=== PATIENT | female | born 1940 | race Caucasian/White ===

== ENCOUNTER → 2017-07-19 | Outpatient (CLI) | payer MEDICARE, OTHER ==
[~2017-07-19] MED LIST: ABAT250V; ACET325 PO; ALBU3IS INH; ALBU3IS NEB; AZIT500 PO; BENZ100A PO; Bacid1 EACH PO; CEPH250A PO; CODGUAEL PO; DIGO.125 PO; FURO40 PO; K-Dur 20 meq T20 MEQ PO; LORA.5 PO; MANNOSE50 GM PO; METO25; METO25ER PO; METR500 PO; OMEP20ER PO; POTCHL20ER PO; POTPHO PO; ROBITUSSIN100 MG/5 M PO; SULTRIDS PO; WARF5 PO
[2017-07-19 16:11] LABS: Source, Urine Clean Catch
[2017-07-19 18:15] LABS: Appearance, Urine Hazy (Clear); Bilirubin, Urine Neg (Neg); Blood, Urine 1+ (Neg); Color, Urine Yellow (P-Yellow); Glucose Qualitative, Urine Neg (Neg); Ketones, Urine Neg (Neg); Leukocyte Esterase, Urine 2+ (Neg); Nitrite, Urine Pos (Neg); Protein, Urine Neg (Neg); Specific Gravity, Urine 1.025 (1.003-1.022); Urobilinogen, Urine NORM (Normal)
[2017-07-19 18:41] LABS: Bacteria Many /hpf; Squamous Epithelial Cells Few /hpf (Few)
== END | disposition home or self-care (01) ==
LOC: OLS 16:10
PROVIDERS: Internal Medicine
DX: N39.0 Urinary tract infection, site not specified (principal)
CPT/HCPCS: 81001; 87077; 87086; 87186

== ENCOUNTER → 2019-09-07 | Outpatient (CLI) | payer MEDICARE, OTHER ==
[2019-09-07 13:49] LABS: Source, Urine Clean Catch
[2019-09-07 15:48] LABS: Blood, Urine 4+ (Neg); Glucose Qualitative, Urine Neg (Neg); Ketones, Urine 1+ (Neg); Leukocyte Esterase, Urine 3+ (Neg); Nitrite, Urine Pos (Neg); Protein, Urine 2+ (Neg); Specific Gravity, Urine 1.025 (1.003-1.022); Urobilinogen, Urine 1+ (Normal)
[2019-09-07 15:54] LABS: Appearance, Urine Cloudy (Clear); Bilirubin, Urine 1+ (Neg); Color, Urine Yellow (P-Yellow)
[2019-09-07 15:55] LABS: White Blood Cells, Urine TNTC /hpf (0-5)
[2019-09-07 16:02] LABS: Bacteria Many /hpf; Squamous Epithelial Cells Few /hpf (Few)
== END | disposition home or self-care (01) ==
LOC: LAB SHORT 13:48 → OLS 13:48
PROVIDERS: Internal Medicine
DX: N39.0 Urinary tract infection, site not specified (principal)
CPT/HCPCS: 81001; 87077; 87086; 87186

== ENCOUNTER → 2019-09-14 | Outpatient (CLI) | payer MEDICARE, OTHER ==
[2019-09-14 15:52] LABS: Source, Urine Clean Catch
[2019-09-14 17:27] LABS: Bilirubin, Urine Neg (Neg); Blood, Urine Neg (Neg); Glucose Qualitative, Urine Neg (Neg); Ketones, Urine Neg (Neg); Leukocyte Esterase, Urine Neg (Neg); Nitrite, Urine Neg (Neg); Protein, Urine Neg (Neg); Specific Gravity, Urine 1.025 (1.003-1.022); Urobilinogen, Urine NORM (Normal)
[2019-09-14 17:37] LABS: Appearance, Urine Clear (Clear); Color, Urine Yellow (P-Yellow)
== END | disposition home or self-care (01) ==
LOC: OLS 15:51 → LAB SHORT 15:51 → LAB FUT 09-07 17:45
PROVIDERS: Internal Medicine
DX: N39.0 Urinary tract infection, site not specified (principal)
CPT/HCPCS: 81003

== ENCOUNTER → 2021-05-11 | Outpatient (CLI) | payer MEDICARE, OTHER | LOC: LAB SHORT 15:53 → LAB 15:53 | DX: D48.5 Neoplasm of uncertain behavior of skin (principal); Z91.048 Other nonmedicinal substance allergy status; Z88.1 Allergy status to other antibiotic agents | CPT/HCPCS: 88305 ==

== ENCOUNTER 2023-04-21 16:13 | Emergency (ER) | payer MEDICARE, OTHER ==
[~2023-04-21] VITALS: Ht 157.5 cm; Wt 50.4 kg
[2023-04-21 17:05] LABS: BASOPHILS ABSOLUTE AUTO 0.04 K/mm3 (0.00-0.23); BASOPHILS PERCENT AUTO 1 % (0-2); EOSINOPHILS ABSOLUTE AUTO 0.09 K/mm3 (0.00-0.68); EOSINOPHILS PERCENT AUTO 1 % (0-6); Hematocrit 34.2 % (33.0-51.0); Hemoglobin 11.5 g/dL (11.5-16.0); IMMATURE GRAN ABSOLUTE AUTO 0.03 K/mm3 (0.00-0.10); IMMATURE GRAN PERCENT AUTO 0 % (0-1); LYMPHOCYTES ABSOLUTE AUTO 1.87 K/mm3 (0.84-5.20); LYMPHOCYTES PERCENT AUTO 26 % (21-46); MONOCYTES ABSOLUTE AUTO 0.56 K/mm3 (0.16-1.47); MONOCYTES PERCENT AUTO 8 % (4-13); Mean Corpuscular HGB Conc 33.6 g/dL (31.5-36.5); Mean Corpuscular Volume 98 fL (80-100); Mean Platelet Volume 10.5 fL (9.1-12.4); NEUTROPHILS ABSOLUTE AUTO 4.62 K/mm3 (1.96-9.15); NEUTROPHILS PERCENT AUTO 64 % (41-73); Platelet Count 219 K/mm3 (150-400); RDW Coefficient Variation 14.6 % (11.7-14.2); RDW Standard Deviation 53.1 fL (35.1-46.3); Red Blood Cell Count 3.49 M/mm3 (3.80-5.20); White Blood Cell Count 7.21 K/mm3 (4.00-11.30)
[2023-04-21 17:28] LABS: Albumin, Blood 3.7 g/dL (3.4-5.0); Albumin/Globulin Ratio 1.6 (0.8-1.8); Bilirubin, Total 0.4 mg/dL (0.1-1.0); Bun/Creatinine Ratio 21.9 (12.0-20.0); Calcium, Blood 8.6 mg/dL (8.5-10.1); Creatinine, Blood 1.37 mg/dL (0.40-1.00); Globulin, Blood 2.3 g/dL (2.2-4.0); Potassium, Blood 3.6 mmol/L (3.5-5.5)
[2023-04-21 18:00] VITALS: BP 146/82
== END 2023-04-21 18:10 | disposition home or self-care (01) ==
LOC: ER 16:13
PROVIDERS: Physician Assistant
DX: T44.7X1A Poisoning by beta-adrenoreceptor antagonists, accidental (unintentional), initial encounter (principal); Z88.8 Allergy status to other drugs, medicaments and biological substances; Z79.899 Other long term (current) drug therapy; Z79.01 Long term (current) use of anticoagulants
CPT/HCPCS: 80053; 85025; 93005; 93010; 99284-25

== ENCOUNTER 2023-07-18 09:08 | Inpatient (IN) | payer MEDICARE, OTHER ==
[2023-07-18] VITALS (31 sets, daily range): BP systolic 86–129; BP diastolic 47–108
[~2023-07-18] VITALS: Ht 154.9 cm; Wt 44.3 kg
[2023-07-18 10:03] LABS: BASOPHILS ABSOLUTE AUTO 0.02 K/mm3 (0.00-0.23); BASOPHILS PERCENT AUTO 0 % (0-2); EOSINOPHILS ABSOLUTE AUTO 0.09 K/mm3 (0.00-0.68); EOSINOPHILS PERCENT AUTO 1 % (0-6); Hemoglobin 11.2 g/dL (11.5-16.0); IMMATURE GRAN ABSOLUTE AUTO 0.05 K/mm3 (0.00-0.10); IMMATURE GRAN PERCENT AUTO 1 % (0-1); LYMPHOCYTES ABSOLUTE AUTO 1.34 K/mm3 (0.84-5.20); LYMPHOCYTES PERCENT AUTO 19 % (21-46); MONOCYTES ABSOLUTE AUTO 0.61 K/mm3 (0.16-1.47); MONOCYTES PERCENT AUTO 8 % (4-13); Mean Corpuscular HGB 33.4 pg (26.0-34.0); Mean Corpuscular HGB Conc 32.9 g/dL (31.5-36.5); Mean Corpuscular Volume 102 fL (80-100); Mean Platelet Volume 10.2 fL (9.1-12.4); NEUTROPHILS ABSOLUTE AUTO 5.15 K/mm3 (1.96-9.15); NEUTROPHILS PERCENT AUTO 71 % (41-73); Platelet Count 256 K/mm3 (150-400); RDW Standard Deviation 59.3 fL (35.1-46.3); Red Blood Cell Count 3.35 M/mm3 (3.80-5.20); White Blood Cell Count 7.26 K/mm3 (4.00-11.30)
[2023-07-18 10:06] LABS: Source, Urine Straight Cath
[2023-07-18 10:18] LABS: Appearance, Urine Hazy (Clear); Bilirubin, Urine Neg (Neg); Blood, Urine 1+ (Neg); Color, Urine Yellow (P-Yellow); Glucose Qualitative, Urine Neg (Neg); Ketones, Urine Neg (Neg); Leukocyte Esterase, Urine 1+ (Neg); Nitrite, Urine Neg (Neg); Protein, Urine 1+ (Neg); Specific Gravity, Urine 1.025 (1.003-1.022); Urobilinogen, Urine NORM (Normal)
[2023-07-18] MEDS ORDERED: FURO20 PO (10:19)
[2023-07-18 10:29] LABS: Amorphous Mod (0-Heavy); Bacteria Many /hpf; Squamous Epithelial Cells Few /hpf (Few)
[2023-07-18 10:33] LABS: Albumin, Blood 3.2 g/dL (3.4-5.0); Albumin/Globulin Ratio 1.2 (0.8-1.8); Bilirubin, Direct 0.2 mg/dL (0.0-0.3); Bilirubin, Indirect 0.7 mg/dL (0.1-0.7); Bilirubin, Total 0.9 mg/dL (0.1-1.0); Bun/Creatinine Ratio 26.7 (12.0-20.0); Calcium, Blood 8.9 mg/dL (8.5-10.1); Creatinine, Blood 1.61 mg/dL (0.40-1.00); Globulin, Blood 2.7 g/dL (2.2-4.0); Magnesium, Blood 1.5 mg/dL (1.6-2.4); Phosphorus, Blood 3.5 mg/dL (2.5-4.9); Total Protein, Blood 5.9 g/dL (6.4-8.2)
[2023-07-18 10:49] LABS: Influenza A, PCR NEGATIVE (NEGATIVE); Influenza B, PCR NEGATIVE (NEGATIVE); Resp Syncytial Virus, PCR NEGATIVE (NEGATIVE); SARS-Cov-2 (COVID-19) PCR, MMC NEGATIVE (NEGATIVE)
[2023-07-18 11:06] LABS: Prothrombin Time Results 45.1 Sec (9.7-11.5)
[2023-07-18 11:14] LABS: Base Excess Venous -10.6 mmol/L; Bicarbonate Venous 16.5 mmol/L (24.0-30.0); pH Blood Venous 7.26 (7.34-7.37)
[2023-07-18 11:17] LABS: International Normalized Ratio 4.69
[2023-07-18 14:17] LABS: Hematocrit 30.9 % (33.0-51.0); Hemoglobin 10.1 g/dL (11.5-16.0)
--- NOTE | 2023-07-18 18:40 | NUR ---
ICU ADMISSION / SHIFT SUMMARY: REPORT RECEIVED FROM IRIS Sheffield RN IN ED. PT ARRIVED TO ICU-13 AT APPROX 1430. ON ASSESSMENT, THE PT IS A&O TO ALL, PLEASANT & COOPERATIVE. SHE HAS C/O PAIN TO BLE W/ CARE & CLEANSING OF FEET WOUNDS. NOBLE, AMBULATES W/ CANE AT BASELINE. LS CLEAR, PT ON HOME DOSE 2L NC W/ O2 SATS > 95% ON AVG. DENIES COUGH, STS SOB IMPROVING. MONITOR SHOWS SR W/ HR 80-90s, BP SOFT W/ MAP MAINTAINING > [address] GREENE TO BEDSIDE THIS EVENING & HAS ORDERED LR x1 LITER FOR CONTINUOUS IVFs TO MAINTAIN ADEQUATE MAP > 65. DISCONTINUE IF S/SX WORSENING FLUID OVERLOAD OCCUR. PT TOLERATING PO INTAKE WELL W/ NO NAUSEA, NO BM SINCE ADMIT. PUREWICK IN PLACE W/ PULLUP ATTENDS FOR URGENCY INCONTINENCE. SKIN CONDITION OVERALL FRAGILE, WOUNDS TO ANTERIOR FOOT SURFACE THAT PT STS HAVE WORSENED IN PAST WEEK. THEY APPEAR TO BE SKIN TEARS OR ABRASIONS, TOENAILS ARE OVERGROWN & BEGINNING TO IMPEDE UPON EACH OTHER, BENDING & TOUCHING SURROUNDING SOFT TISSUES. PHOTOS IN CHART. THE PT's BUTTOCKS IS SLIGHTLY PINK/ REDENNED, BLANCHABLE & PT STS CHRONIC. MEDIPORT TO PT's LEFT CHEST WALL REMAINS UNACCESSED PER PT REQUEST. SHE STS THAT SHE HAD IT EVALUATED APPROX [facility] & THAT THE LINE STILL WORKS. HAS NOT RECEIVED CHEMO IN APPROX 9 YEARS. WILL CONTINUE TO MONITOR & REPORT OFF TO ONCOMING RN.
--- NOTE | 2023-07-18 20:14 | NUR ---
/ASSESSMENT/ASSUMED CARE PT RESTING QUIETLY WITH EYES CLOSED, OPENS EYES AND STATES,"PAIN IS GONE RIGHT NOW". PT THAN SAYS,"IT COMES AND GOES. IT IS COMING BACK NOW 04/24. IT IS BURNING". CALL TO DR GUILLERMO REGARDING PAIN AND WOUNDS TO BILAT FEET. AWAITING NEW ORDERS. LUNGS CLEAR ON 2 LITERS O2 VIA NC. RESP EVEN AND NONLABORED. HEART RATE UP TO 90-100'S WITH PAIN AND MOVEMENT. BP STABLE. BILAT LOWER EDEMA. PT REPORTS,"IT IS SO MUCH BETTER NOW". BT+ ABD SOFT AND NONTENDER. DENIES N/V. PT MOVING ALL EXT. ATTENDS CHANGED AND PURWICK REPLACED. LINENS CHANGED. LEFT FOOT WOUND WITH DRSG INTACT. RIGHT FOOT WITH WOUND OPEN TO AIR. ELEVATED BILAT FEET. IV WITH LR AT 150 ML/HR FOR ONE LITER
[2023-07-19] VITALS (45 sets, daily range): BP systolic 83–128; BP diastolic 44–86
[2023-07-19 03:32] LABS: BASOPHILS ABSOLUTE AUTO 0.05 K/mm3 (0.00-0.23); BASOPHILS PERCENT AUTO 1 % (0-2); EOSINOPHILS ABSOLUTE AUTO 0.27 K/mm3 (0.00-0.68); EOSINOPHILS PERCENT AUTO 3 % (0-6); Hematocrit 28.9 % (33.0-51.0); Hemoglobin 9.6 g/dL (11.5-16.0); IMMATURE GRAN ABSOLUTE AUTO 0.04 K/mm3 (0.00-0.10); IMMATURE GRAN PERCENT AUTO 0 % (0-1); LYMPHOCYTES ABSOLUTE AUTO 1.89 K/mm3 (0.84-5.20); LYMPHOCYTES PERCENT AUTO 18 % (21-46); MONOCYTES ABSOLUTE AUTO 1.28 K/mm3 (0.16-1.47); MONOCYTES PERCENT AUTO 12 % (4-13); Mean Corpuscular HGB 33.6 pg (26.0-34.0); Mean Corpuscular HGB Conc 33.2 g/dL (31.5-36.5); Mean Corpuscular Volume 101 fL (80-100); Mean Platelet Volume 10.2 fL (9.1-12.4); NEUTROPHILS ABSOLUTE AUTO 6.94 K/mm3 (1.96-9.15); NEUTROPHILS PERCENT AUTO 66 % (41-73); Platelet Count 227 K/mm3 (150-400); RDW Coefficient Variation 15.9 % (11.7-14.2); RDW Standard Deviation 58.3 fL (35.1-46.3); Red Blood Cell Count 2.86 M/mm3 (3.80-5.20); White Blood Cell Count 10.47 K/mm3 (4.00-11.30)
[2023-07-19 03:56] LABS: Prothrombin Time Results 55.8 Sec (9.7-11.5)
[2023-07-19 03:58] LABS: Albumin, Blood 2.3 g/dL (3.4-5.0); Bilirubin, Total 0.6 mg/dL (0.1-1.0); Bun/Creatinine Ratio 30.5 (12.0-20.0); Calcium, Blood 7.9 mg/dL (8.5-10.1); Creatinine, Blood 1.05 mg/dL (0.40-1.00); Globulin, Blood 2.3 g/dL (2.2-4.0); Total Protein, Blood 4.6 g/dL (6.4-8.2)
[2023-07-19 04:07] LABS: International Normalized Ratio 5.87
--- NOTE | 2023-07-19 04:35 | NUR ---
STARTED NS AT 75 ML/HR TO KEEP MAP GREATER THAN 60
--- NOTE | 2023-07-19 06:00 | NUR ---
SHIFT SUMMARY PT RESTED QUIETLY DURING THE NIGHT ON 2 LITERS O2 VIA NC. MED DURING THE NIGHT WITH TYLENOL FOR BILAT FOOT PAIN WITH GOOD RESULTS. PT STATES,"I THINK THAT TYLENOL REALLY DID HELP LAST NIGHT". BILAT FOOT DRSG CHANGED DURING THE NIGHT. PT TURNED Q2HR. TAKING PO MEDS WITHOUT DIFFICULTY. NS AT 75 ML/HR STARTED FOR ONE LITER TO KEEP MAP GREATER THAN 60. REPORT TO ON COMING NURSE
--- NOTE | 2023-07-19 08:16 | NUR ---
ASSUMED CARE / DR CHERRY / DR AUSTIN: REPORT RECEIVED FROM SOSA Knowles RN. ASSUMED CARE OF THIS PT AT APPROX 0700. ON ASSESSMENT, THE PT IS AWAKE, A&O TO ALL. SHE IS PLEASANT & COOPERATIVE W/ CARE BUT DOES HAVE INCREASED C/O PAIN AFTER DRESSINGS TO BILAT FOOT WOUNDS WERE REMOVED FOR DR CHERRY's EVAL THIS AM. LS DIM IN BASES, FINE CRACKLES NOTED TO RLL. PT ON 2L NC W/ O2 SATS > 92%. MONITOR SHOWS SR W/ HR 80s, BP SOFT W/ SBP 90s, MAP MAINTAINING > 65. PT HAS NO GI COMPLAINTS, TOLERATING PO INTAKE WELL. VOIDING USING PUREWICK, YELLOW URINE NOTED IN CANISTER. SKIN CONDITION OVERALL FRAGILE, INTACT. SWELLING TO BLE HAS DECREASED SINCE END OF SHIFT YESTERDAY. DR CHERRY AT BEDSIDE THIS AM TO EVAL PT. HE STS HE WILL PLACE A WOUND CARE CONSULTATION FOR MANAGEMENT OF BILAT FOOT WOUNDS. HE WILL RETURN THIS AFTERNOON W/ TOOLS FROM HIS OFFICE TO PROVIDE CARE TO OVERGROWN TOENAILS. DR AUSTIN AT BEDSIDE THIS AM TO EVAL PT. DISCUSSED PT's CONTINUED SOFT BPs W/ REQUEST TO INCREASE MIDODRINE DOSING. ALSO UPDATED HIM ON DR CHERRY's POC & INCREASED PAIN TO FEET AFTER WOUND CARE. PROVIDER WILL PLACE PRN LIDOCAINE ORDERS, THE PT STS THAT IT PROVIDED RELIEF FROM THE BURNING/ SCALDED SENSATION OF HER WOUNDS. POSSIBLE STATUS CHANGE AFTER DISCUSSING W/ ATTENDING, DR GREENE. NO OTHER CHANGES AT THIS TIME. WILL CONTINUE TO MONITOR & UPDATE NEEDED.
--- NOTE | 2023-07-19 12:11 | NUR ---
DR CHERRY: PROVIDER HAS RETURNED TO BEDSIDE TO COMPLETE TOENAIL CARE & TRIMMING FOR THIS PT. NOTIFIED HIM THAT CONCRETE POURER HAS EVALUATED THE PT & IS PLACING ORDERS FOR WOUND CARE.
--- NOTE | 2023-07-19 18:43 | NUR ---
SHIFT SUMMARY: NO ACUTE CHANGES SINCE PRIOR UPDATES. THE PT REMAINS A&O, PLEASANT & COOPERATIVE. WORKED WELL W/ PT/OT THIS AFTERNOON & WAS ABLE TO DANGLE AT BEDSIDE MULTIPLE TIMES. LS CLEAR, DIM IN BASES. PT ON 2L NC W/ O2 SATS > 95%. MONITOR SHOWS SR W/ HR 60-80s, BP STABLE. SBP SOFT IN 90s WHILE SLEEPING, MAP MAINTAINS > 65. MIDODRINE PER EMAR. PT TOLERATING PO INTAKE WELL W/ NO GI COMPLAINTS. NO BM THIS SHIFT, BOWEL CARE PER EMAR. NEW PUREWICK & ATTENDS PLACED THIS EVENING AT TIME OF CHG BATH. CLEAR YELLOW URINE NOTED IN CANISTER. SKIN CONDITION OVERALL INTACT, Q2H REPOSITIONING TO MAINTAIN SKIN INTEGRITY. DRESSINGS TO BLE REMAIN CDI, SOCKS IN PLACE OVER DRESSINGS AT PT REQUEST FOR FEET FEELING COLD. WILL CONTINUE TO MONITOR & REPORT OFF TO ONCOMING RN.
--- NOTE | 2023-07-19 19:23 | NUR ---
ASSUMED CARE PATIENT LYING IN BED AWAKE AND PARTICIPATING IN BEDSIDE REPORT. JIMY PIV SALINE LOCKED. MONITOR SHOWS ST WITH RATE 100'S. BP STABLE. SPO2 NOT READING AT THIS TIME, 2LPM VIA NC IN PLACE FOR PATIENT COMFORT. PUREWICK IN PLACE. NO FAMILY PRESENT AT BEDSIDE. WATER AND CELL PHONE ON BEDSIDE TABLE. CELL PHONE IN REACH. BEDSIDE REPORT COMPLETED WITH TAMI DONOVAN.
[2023-07-20] VITALS (7 sets, daily range): BP systolic 95–109; BP diastolic 53–63
[2023-07-20 03:54] LABS: International Normalized Ratio 3.33; Prothrombin Time Results 32.7 Sec (9.7-11.5)
--- NOTE | 2023-07-20 06:20 | NUR ---
SHIFT SUMMARY PATIENT SLEPT T/O SHIFT. MEDICATED WITH TYLENOL PER EMAR THIS AM. VSS. 2LPM NC IN PLACE FOR PATIENT COMFORT. NO BM THIS SHIFT. NO OTHER CHANGES THIS SHIFT.
[2023-07-20 07:51] LABS: Hematocrit 29.6 % (33.0-51.0); Hemoglobin 9.9 g/dL (11.5-16.0)
[2023-07-20] MEDS ORDERED: Coumadin2 MG PO (09:26)
[2023-07-20] MEDS ORDERED: WARF3 PO (09:27)
[2023-07-20] MEDS ORDERED: ENTRESTO 24 MG1 EACH PO (09:28)
[2023-07-20] MEDS ORDERED: HYDROCODONE-AC1 EA19 PO (09:30)
[2023-07-20] MEDS ORDERED: TIZA4 PO (09:30)
--- NOTE | 2023-07-20 13:26 | NUR ---
Spiritual Care Visit. Pt. is awake in bed and welcomes my visit. Pt. is pleasant. Facilitated a life review. Listened with empathy and a calming presence. Pt. displays evidence of being both aware and engaged. Considered matters of myrlte and belief, and rapport is established as more of her life story was being shared. Prayed with Pt. Pt. verbalized gratitude for the spiritual care visit and welcomed this insurance claims examiner to return.
--- NOTE | 2023-07-20 15:37 | NUR ---
Supportive visit this afternoon. Pt resting in bed and denies pain at this time. Brief review of plan of care. Listened as Pt reports being and lives with her . She reports having 2 children that live in the area. She reports adequate support from family. Continued supportive visit. Spoke with Primary RN Paola and discussed case. Palliative Care will remain available
--- NOTE | 2023-07-20 17:50 | NUR ---
SUMMARY PT RESTING IN BED. A/O X4. PT HAS PAIN IN FEET WHEN OOB BUT IT IS TOLERABLE WHILE IN BED. DRESSINGS REMAIN INTACT. PT GOT 500ML BOLUS OF LR FOR BP, ALSO GETTING MIDODRINE. MAP ABOVE 65. PT HAS REDDENED PERIAREA AND A SMALL SPLIT IN COCCYX. WOUND PHOTOS COMPLETE, BARRIER CREAM APPLIED, AND MEPILEX PLACED FOR PROTECTION. PT USES CALL LIGHT APPROPRIATELY. WILL BE TRANSFERING TO PCU 8 WHEN ROOM IS READY.
--- NOTE | 2023-07-20 21:37 | NUR ---
ASSUMPTION OF CARE/TRANSFER NOTE THIS RN RECEIVED REPORT FROM RUBINA GARRETT IN THE ICU. PT TRANSFERRED TO PCU 14 AT 1935. PT A&O. ABLE TO MAKE NEEDS KNOWN. MINIMAL ASSISTANCE NEEDED FOR TURNING. BP STABLE WITH SBP 100'S. SR WTIH HR 60-70'S. ON 1L VIA NC WITH SPO2 >92%. DENIES CHEST PAIN/PRESSURE OR SOB. LFA IV SALINE LOCKED. MEDICATED PER EMAR FOR HEARTBURN PER MD ORDER. FOOT CRADLE PLACED D/T FOOT PAIN FROM WOUNDS. DRESSINGS ON WOUNDS C/D/I. MEPILEX ON COCCYX; COCCYX WITH BARRIER CREAM APPLIED; NOTED TO BE RED AND EXCORIATED. EDUCATED PT REGARDING REPOSITIONING IN BED. FLOATED HIPS AND LEGS. PT VERBALIZED COMFORT. BED IN LOWEST POSITION AND CALL LIGHT WITHIN REACH.
[2023-07-21] VITALS (7 sets, daily range): BP systolic 94–118; BP diastolic 52–68
[2023-07-21 03:51] LABS: Hemoglobin 9.7 g/dL (11.5-16.0)
[2023-07-21 04:06] LABS: International Normalized Ratio 1.69; Prothrombin Time Results 17.2 Sec (9.7-11.5)
--- NOTE | 2023-07-21 05:12 | NUR ---
SHIFT SUMMARY NO ACUTE CHANGES SINCE ARRIVAL AND PREVIOUS NOTE. NEURO INTACT. REPOSITIONING PT Q2HRS. FOOT CRADLE IN PLACE. DRESSING ON BILAT FEET C/D/I. PURWICK CHANGED AT 0400. ATTENDS IN PLACE. MEPILEX ON COCCYX C/D/I, BARRIER CREAM APPLIED. UNABLE TO COMPLETE ORTHOSTATIC BP'S D/T PT'S CONTINUED PAIN IN FEET AND DIFFICULTY STANDING. PT ON 1-2L VIA NC; BASELINE OF 2L; SPO2 >90%. SBP 90-100'S. MAP >65. AFEBRILE. SR WITH HR 60-70'S ON TELE. BED IN LOWEST POSITION AND CALL LIGHT WITHIN REACH. THIS RN WILL REPORT TO ONCOMING DAYSHIFT RN.
[2023-07-21 06:05] LABS: Bun/Creatinine Ratio 20.1 (12.0-20.0); Calcium, Blood 8.2 mg/dL (8.5-10.1); Creatinine, Blood 0.9 mg/dL (0.40-1.00); Potassium, Blood 3.9 mmol/L (3.5-5.5)
--- NOTE | 2023-07-21 08:10 | NUR ---
AM ASSESSMENT: Pt resting in bed. A/Ox4. States that she has some pain in BLE that is improving. BLE wounds with kerlex wrap in place. Pedal pulse faint but palp. LS with fine crackles in bases, on 1L per NC with biox 98%, home O2 of 2L per NC. HR reg, tele shows NSR. BT positive. Orthostatic BP taken and stable. Pt up to chair with one person moderate assist. Purewick removed. Attends in place. Mepalex on coccyx d/t redness. Pt call light in reach. Will monitor.
[2023-07-21] MEDS ORDERED: DOCU100 PO (10:11)
[2023-07-21] MEDS ORDERED: BACTRIM DS TAB1 EAC6 PO (10:13)
[2023-07-21] MEDS ORDERED: VISBIOME 112.51 EACH PO (10:14)
[2023-07-21] MEDS ORDERED: TIZA4 PO (10:15)
[2023-07-21] MEDS ORDERED: MIDO5 PO (10:44)
--- NOTE | 2023-07-21 15:05 | NUR ---
Discharge: Pt, her son and [id number] were given printed and written discharge instructions. Verbalized understanding, denies questions. IV was discontinued, cath intact. Rx were sent to [facility]. Home health was arrainged. Pt left via w/c. Stable at time of discharge.
== END 2023-07-21 15:23 | disposition home health service (06) | DRG 315 ==
LOC: ER 09:08 → ICUE 12:46 → PCU 07-20 19:18
PROVIDERS: Emergency Medicine; Family Medicine; ADMIT Internal Medicine
DX: I95.89 Other hypotension (principal); E87.20 Acidosis, unspecified; I50.42 Chronic combined systolic (congestive) and diastolic (congestive) heart failure; R65.10 Systemic inflammatory response syndrome (SIRS) of non-infectious origin without acute organ dysfunction; E87.3 Alkalosis; I95.2 Hypotension due to drugs; T40.605A Adverse effect of unspecified narcotics, initial encounter; I95.1 Orthostatic hypotension; E86.1 Hypovolemia; T48.205A Adverse effect of unspecified drugs acting on muscles, initial encounter; R82.71 Bacteriuria; L60.2 Onychogryphosis; J44.9 Chronic obstructive pulmonary disease, unspecified; D53.9 Nutritional anemia, unspecified; E83.42 Hypomagnesemia; N18.32 Chronic kidney disease, stage 3b; R79.1 Abnormal coagulation profile; Z86.718 Personal history of other venous thrombosis and embolism; Z99.81 Dependence on supplemental oxygen; Z85.72 Personal history of non-Hodgkin lymphomas; Z92.21 Personal history of antineoplastic chemotherapy; Z88.8 Allergy status to other drugs, medicaments and biological substances; Z79.01 Long term (current) use of anticoagulants; Z87.891 Personal history of nicotine dependence; Z11.52 Encounter for screening for COVID-19; Z91.148 Patient's other noncompliance with medication regimen for other reason
CPT/HCPCS: 0241U; 36415; 51701; 71045; 80048; 80053; 81001; 82248; 82533; 82607; 82746; 82803; 83605; 83735; 83880; 84100; 84145; 84484; 85014; 85018; 85025; 85379; 85610; 85730; 87077; 87086; 87186; 93005; 93010; 93970; 94762; 96361-59; 96365-59; 96375-59; 97110; 97162; 97165; 97530; 97535; 99285-25; A9270; J0696; J3475; J7030; J7120

== ENCOUNTER → 2023-08-12 | Outpatient (CLI) | payer MEDICARE, OTHER ==
[~2023-08-12] MED LIST changes: +BACTRIM DS TAB1 EAC6 PO; +Coumadin2 MG PO; +DOCU100 PO; +ENTRESTO 24 MG1 EACH PO; +FURO20 PO; +HYDROCODONE-AC1 EA19 PO; +MIDO5 PO; +TIZA4 PO; +VISBIOME 112.51 EACH PO; +WARF3 PO
[2023-08-12 14:51] LABS: International Normalized Ratio 1.85; Prothrombin Time Results 18.8 Sec (9.7-11.5)
== END | disposition home or self-care (01) ==
LOC: LAB 11:09 → LAB SHORT 11:09
PROVIDERS: Internal Medicine
DX: Z51.81 Encounter for therapeutic drug level monitoring (principal); Z79.01 Long term (current) use of anticoagulants
CPT/HCPCS: 85610

== ENCOUNTER 2025-05-07 11:45 | Inpatient (IN) | payer MEDICARE, OTHER ==
[~2025-05-07] VITALS: Ht 154.9 cm; Wt 41.3 kg
[~2025-05-07 11:45] MED LIST changes: -ACET325 PO; +ACET500 PO
[2025-05-07 13:05] LABS: BASOPHILS ABSOLUTE AUTO 0.04 K/mm3 (0.00-0.23); BASOPHILS PERCENT AUTO 1 % (0-2); EOSINOPHILS ABSOLUTE AUTO 0.06 K/mm3 (0.00-0.68); EOSINOPHILS PERCENT AUTO 1 % (0-6); Hematocrit 33.8 % (33.0-51.0); Hemoglobin 10.9 g/dL (11.5-16.0); IMMATURE GRAN ABSOLUTE AUTO 0.01 K/mm3 (0.00-0.10); IMMATURE GRAN PERCENT AUTO 0 % (0-1); LYMPHOCYTES ABSOLUTE AUTO 1.57 K/mm3 (0.84-5.20); LYMPHOCYTES PERCENT AUTO 30 % (21-46); MONOCYTES ABSOLUTE AUTO 0.51 K/mm3 (0.16-1.47); MONOCYTES PERCENT AUTO 10 % (4-13); Mean Corpuscular HGB Conc 32.2 g/dL (31.5-36.5); Mean Corpuscular Volume 97 fL (80-100); NEUTROPHILS ABSOLUTE AUTO 3.07 K/mm3 (1.96-9.15); NEUTROPHILS PERCENT AUTO 58 % (41-73); NRBC ABSOLUTE 0.00 K/mm3 (0.00-0.02); NRBC Auto 0.0 /100 WBC (0.0-0.2); Platelet Count 268 K/mm3 (150-400); RDW Coefficient Variation 13.4 % (11.7-14.2); RDW Standard Deviation 47.9 fL (35.1-46.3)
[2025-05-07 13:58] LABS: Alanine Aminotransfer (ALT/SGP 22.0 U/L (12-78); Albumin, Blood 3.8 g/dL (3.4-5.0); Albumin/Globulin Ratio 1.4 (0.8-1.8); Anion Gap 6.0 mmol/L (3-11); Aspartate Aminotrans (AST/SGOT 17.0 U/L (12-37); Bilirubin, Total 0.5 mg/dL (0.1-1.0); Blood Urea Nitrogen 26.0 mg/dL (8-24); CO2, Blood 28.0 mmol/L (21-32); Calcium, Blood 9.4 mg/dL (8.5-10.1); Chloride, Blood 107.0 mmol/L (98-108); Creatinine, Blood 1.4 mg/dL (0.40-1.00); Globulin, Blood 2.8 g/dL (2.2-4.0); Glucose, Blood 119.0 mg/dL (70-99); Potassium, Blood 3.4 mmol/L (3.5-5.5); Sodium, Blood 138.0 mmol/L (136-145); Total Protein, Blood 6.6 g/dL (6.4-8.2)
[2025-05-07] MEDS ORDERED: ENTRESTO 24 MG1 EACH PO (19:42)
[2025-05-07] MEDS ORDERED: OxyCODONE 5 mg/Acetamin 325 mg TABLET PO PRN (19:50)
[2025-05-07] MEDS ORDERED: NS 1,000 ML IV SCH (20:10)
[2025-05-07 21:25] LABS: Prothrombin Time Results 68.6 Sec (9.7-11.5)
[2025-05-07 21:54] VITALS: BP 128/74
[2025-05-08 05:58] VITALS: BP 128/77
--- NOTE | 2025-05-08 06:36 | NUR ---
Shift Summary Pt admitted to this unit from ED for pre-syncope and shingles. While in the ED she was hypotensive, nauseous and diaphoretic. Since arrival to this unit BP has been stable around 120/60, no dizzyness or nausea or diaphoresis. She is rcving an anti-viral for shingles and is in airborne contact precautions. She is AOx4, 1 SBA to BR with her cane. Her shingles rash is on her L neck extending up her head. The rash is painful, she is being medicated per EMAR.
[2025-05-08 07:20] LABS: BASOPHILS ABSOLUTE AUTO 0.04 K/mm3 (0.00-0.23); BASOPHILS PERCENT AUTO 1 % (0-2); EOSINOPHILS ABSOLUTE AUTO 0.11 K/mm3 (0.00-0.68); EOSINOPHILS PERCENT AUTO 1 % (0-6); Hematocrit 29.4 % (33.0-51.0); Hemoglobin 9.5 g/dL (11.5-16.0); IMMATURE GRAN ABSOLUTE AUTO 0.01 K/mm3 (0.00-0.10); IMMATURE GRAN PERCENT AUTO 0 % (0-1); LYMPHOCYTES ABSOLUTE AUTO 2.54 K/mm3 (0.84-5.20); LYMPHOCYTES PERCENT AUTO 34 % (21-46); MONOCYTES ABSOLUTE AUTO 0.76 K/mm3 (0.16-1.47); MONOCYTES PERCENT AUTO 10 % (4-13); Mean Corpuscular HGB Conc 32.3 g/dL (31.5-36.5); Mean Corpuscular Volume 98 fL (80-100); NEUTROPHILS ABSOLUTE AUTO 4.13 K/mm3 (1.96-9.15); NEUTROPHILS PERCENT AUTO 55 % (41-73); NRBC ABSOLUTE 0.00 K/mm3 (0.00-0.02); NRBC Auto 0.0 /100 WBC (0.0-0.2); Platelet Count 242 K/mm3 (150-400); RDW Coefficient Variation 13.3 % (11.7-14.2); RDW Standard Deviation 47.8 fL (35.1-46.3)
[2025-05-08 08:02] LABS: Prothrombin Time Results 61.2 Sec (9.7-11.5)
[2025-05-08 08:16] VITALS: BP 123/73
[2025-05-08] MEDS ORDERED: HYDROcodone 5-APAP 325 TAB PO PRN (08:35)
[2025-05-08 08:47] LABS: Alanine Aminotransfer (ALT/SGP 20.0 U/L (12-78); Albumin, Blood 2.9 g/dL (3.4-5.0); Albumin/Globulin Ratio 1.2 (0.8-1.8); Anion Gap 12.0 mmol/L (3-11); Aspartate Aminotrans (AST/SGOT 20.0 U/L (12-37); Bilirubin, Total 0.4 mg/dL (0.1-1.0); Blood Urea Nitrogen 26.0 mg/dL (8-24); CO2, Blood 28.0 mmol/L (21-32); Calcium, Blood 8.9 mg/dL (8.5-10.1); Chloride, Blood 107.0 mmol/L (98-108); Creatinine, Blood 1.18 mg/dL (0.40-1.00); Globulin, Blood 2.5 g/dL (2.2-4.0); Glucose, Blood 79.0 mg/dL (70-99); Potassium, Blood 3.7 mmol/L (3.5-5.5); Sodium, Blood 143.0 mmol/L (136-145); Total Protein, Blood 5.4 g/dL (6.4-8.2)
[2025-05-08] MEDS ORDERED: Phytonadione 1 MG/0.5 ML Injection IM ONE (09:00)
--- NOTE | 2025-05-08 09:32 | NUR ---
ASSUMPTION OF CARE: THIS RN ASSUMED CARE OF PATIENT. AWAKE DURING SHIFT CHANGE REPORT. SITTING UP IN BED c HOB ELEVATED. BREATHING EVEN AND UNLABORED c ROOM AIR. AIRBORNE/CONTACT PRECAUTIONS FOR +SHINGLES. MOST RECENT TELE STRIP IN CHART INTERPRETED SINUS RHYTHM c BBB PVC @ 82bpm. BED IN LOWEST POSITION. CALL LIGHT WITHIN REACH. ACUTE NEEDS MET.
[2025-05-08] MEDS ORDERED: VITAMIN B COMP0.4 MG PO (10:32)
[2025-05-08] MEDS ORDERED: ASCO500 PO (10:33)
--- NOTE | 2025-05-08 11:45 | NUR ---
CALL FROM VANNESSA IN TELEMETRY: PT HAD RUN OF SVT. HAPPENED TO BE ON PHONE c PROVIDER AT THAT TIME. PROVIDER NOTIFIED; WILL REVIEW AND PLACE ORDERS.
[2025-05-08] MEDS ORDERED: Iron Dextran 50 MG / ML 2ML Vial IV ONE (11:55)
[2025-05-08 12:08] VITALS: BP 90/59
[2025-05-08] MEDS ORDERED: Iron Dextran 975 MG in NS 250 ML IV ONE (13:00)
[2025-05-08 18:08] VITALS: BP 129/69
--- NOTE | 2025-05-08 19:31 | NUR ---
END OF SHIFT SUMMARY: A&Ox4. PLEASANT AND COOPERATIVE WITH CARE. CALLS APPROPRIATELY AND IS ABLE TO ADVOCATE NEEDS EFFECTIVELY. VSS. TELE STRIP IN CHART REVIEWED AND INTERPRETED SR c BBB, PAC. BREATHING EVEN AND UNLABORED c 5LPM/NC. CONTINENT OF BOWEL AND BLADDER. TOLERATING DIET. AMBULATES INDEPENDENTLY @ BASELINE c CANE; SBA c FWW TODAY. MEDS WHOLE c FLUIDS. CRITICAL INR FOR WHICH SHE WAS GIVEN VITAMIN K INFUSION. ADMINISTERED IRON INFUSION. MEDICATED PRN PAIN SHINGLES PAIN AND CHRONIC BACK PAIN. CONTINUES TO C / O DIZZINESS UPON CHANGING POSITIONS AND DYSPNEA c EXERTION. BED IN LOWEST POSITION, CALL LIGHT WITHIN REACH, ALL NEEDS MET. REPORT TO ONCOMING NURSE.
[2025-05-08 20:37] VITALS: BP 137/74
[2025-05-09 00:47] VITALS: BP 130/72
--- NOTE | 2025-05-09 04:30 | NUR ---
SHIFT SUMMARY NOC PT A/O X 4. PLEASANT AND COOPERATIVE WITH CARE. VSS. NO ACUTE CHANGES TO REPORT. PT ON TELE SINUS RHYTHM/BBB IN 70'S. ON 5L/NC SPO2 >92%. PAIN BEING MANAGED PER EMAR. ON CONTACT ISOLATION FOR SHINGLES INFECTION ON L EAR AND VESICULAR RASH ON NECK. PT HAS DEACCESSED MEDIPORT IN [facility] FROM PREVIOUS CANCER TREATMENT. PT CURRENTLY RESTING WITH BED IN LOWEST POSITION, AND CALL LIGHT WITHIN REACH.
[2025-05-09 05:32] VITALS: BP 108/74
[2025-05-09 05:53] LABS: BASOPHILS ABSOLUTE AUTO 0.04 K/mm3 (0.00-0.23); BASOPHILS PERCENT AUTO 0 % (0-2); EOSINOPHILS ABSOLUTE AUTO 0.23 K/mm3 (0.00-0.68); EOSINOPHILS PERCENT AUTO 3 % (0-6); Hematocrit 29.7 % (33.0-51.0); Hemoglobin 9.8 g/dL (11.5-16.0); IMMATURE GRAN ABSOLUTE AUTO 0.03 K/mm3 (0.00-0.10); IMMATURE GRAN PERCENT AUTO 0 % (0-1); LYMPHOCYTES ABSOLUTE AUTO 1.61 K/mm3 (0.84-5.20); LYMPHOCYTES PERCENT AUTO 18 % (21-46); MONOCYTES ABSOLUTE AUTO 0.76 K/mm3 (0.16-1.47); MONOCYTES PERCENT AUTO 8 % (4-13); Mean Corpuscular HGB Conc 33.0 g/dL (31.5-36.5); Mean Corpuscular Volume 96 fL (80-100); NEUTROPHILS ABSOLUTE AUTO 6.48 K/mm3 (1.96-9.15); NEUTROPHILS PERCENT AUTO 71 % (41-73); NRBC ABSOLUTE 0.00 K/mm3 (0.00-0.02); NRBC Auto 0.0 /100 WBC (0.0-0.2); Platelet Count 220 K/mm3 (150-400); RDW Coefficient Variation 13.2 % (11.7-14.2); RDW Standard Deviation 47.2 fL (35.1-46.3)
[2025-05-09 06:03] LABS: Prothrombin Time Results 13.1 Sec (9.7-11.5)
--- NOTE | 2025-05-09 06:23 | NUR ---
PT INR WNL @ 1.21 THIS AM.
[2025-05-09 06:40] LABS: Anion Gap 7.0 mmol/L (3-11); Blood Urea Nitrogen 26.0 mg/dL (8-24); CO2, Blood 28.0 mmol/L (21-32); Calcium, Blood 8.9 mg/dL (8.5-10.1); Chloride, Blood 106.0 mmol/L (98-108); Creatinine, Blood 1.16 mg/dL (0.40-1.00); Glucose, Blood 118.0 mg/dL (70-99); Magnesium, Blood 1.2 mg/dL (1.6-2.4); Potassium, Blood 3.6 mmol/L (3.5-5.5); Sodium, Blood 137.0 mmol/L (136-145); Thyroid Stimulating Hormone 2.35 uIU/mL (0.360-4.800)
[2025-05-09 07:25] VITALS: BP 102/60
[2025-05-09] MEDS ORDERED: Magnesium Sulf 2 GM/Water 50ML 50 ML IV ONE (07:40)
[2025-05-09] MEDS ORDERED: NS 250 ML IV PRN (08:20)
[2025-05-09] MEDS ORDERED: CEPH500 PO (11:19)
[2025-05-09] MEDS ORDERED: ELIQUIS2.5 MG PO (11:19)
[2025-05-09] MEDS ORDERED: MIDO5 PO (11:20)
[2025-05-09] MEDS ORDERED: VALA500 PO (11:21)
[2025-05-09] MEDS ORDERED: VISBIOME 112.51 EACH PO (11:21)
--- NOTE | 2025-05-09 15:07 | NUR ---
Patient discharged home with son today. All education/instructions discussed with patient and son prior to leaving. Medication prescriptions faxed to [facility] per patient preference. Patient belongings gathered and in patient possession. Patient transported to entrance via wheelchair.
== END 2025-05-09 14:50 | disposition home or self-care (01) | DRG 596 ==
LOC: ER 11:45 → ERHOLD 11:46 → MEDS 11:46
PROVIDERS: Internal Medicine; Nurse Practitioner Acute Care; Student in an Organized Health Care Education/Training Program; ADMIT Internal Medicine
DX: B02.9 Zoster without complications (principal); I47.10 Supraventricular tachycardia, unspecified; I50.22 Chronic systolic (congestive) heart failure; J44.9 Chronic obstructive pulmonary disease, unspecified; K21.9 Gastro-esophageal reflux disease without esophagitis; I95.89 Other hypotension; E87.6 Hypokalemia; N18.30 Chronic kidney disease, stage 3 unspecified; D50.9 Iron deficiency anemia, unspecified; E83.42 Hypomagnesemia; Z79.01 Long term (current) use of anticoagulants; Z79.891 Long term (current) use of opiate analgesic; Z79.899 Other long term (current) drug therapy; Z86.718 Personal history of other venous thrombosis and embolism; Z90.49 Acquired absence of other specified parts of digestive tract; Z98.890 Other specified postprocedural states
CPT/HCPCS: 36415; 70450; 71046; 80048; 80053; 83735; 83880; 84443; 84484; 85025; 85610; 93005; 93010; 99285-25; A9270; J1750; J3430; J3475; J7030; J7050